=== PATIENT | female | born 1995 | race Caucasian/White ===

== ENCOUNTER 2019-08-20 08:03 | Inpatient (IN) | payer BC ==
[~2019-08-20] VITALS: Ht 185.4 cm; Wt 73.7 kg
[2019-08-20 08:47] LABS: MEAN CORPUSCULAR HEMOGLOBIN 29.9 pg (26.0-34.0); MEAN CORPUSCULAR HGB CONC 32.6 G/dL (31.0-37.0); MEAN CORPUSCULAR VOLUME 92 fL (80-100); PLATELET COUNT (AUTO) 123 K/uL (150-450); RED BLOOD CELL COUNT(AUTO) 4.36 MIL/uL (4.00-5.20); RED CELL DISTRIBUTION WIDTH 12.8 % (11.5-14.5)
[2019-08-20 08:53] LABS: ANION GAP 11 mmol/L (8-16); CARBON DIOXIDE 26 mmol/L (22-29); CHLORIDE 101 mmol/L (98-107); CREATININE 0.97 mg/dL (0.60-1.30); GLOMERULAR FILTR. RATE CALC > 60 mL/min (>60); GLUCOSE,RANDOM 100 mg/dL (70-110); POTASSIUM 3.4 mmol/L (3.5-5.1); SODIUM SERUM 138 mmol/L (136-145); UREA NITROGEN, BLOOD 13 mg/dL (7-18)
[2019-08-20 09:12] LABS: ALANINE AMINOTRANSFERASE 565 U/L (12-78); ALBUMIN 4.4 g/dL (3.4-5.0); ALKALINE PHOSPHATASE 105 U/L (46-116); ASPARTATE AMINOTRANSFERASE 312 U/L (15-37); BILIRUBIN,TOTAL 0.5 mg/dL (0.1-1.0); HCG,QUANTITATIVE < 1 mIU/mL (0-6); TOTAL PROTEIN, SERUM 8.4 g/dL (6.4-8.2)
[2019-08-20] MEDS ORDERED: LORazepam 2 MG TABLET PO PRN (09:30)
[2019-08-20] MEDS ORDERED: HALOPERIDOL 5 MG TABLET PO PRN (09:30)
[2019-08-20] MEDS ORDERED: ZOLPIDEM TARTRATE 10 MG TABLET PO PRN (09:30)
[2019-08-20] MEDS ORDERED: POTASSIUM CHLORIDE 10% 40 MEQ/30 ML LIQUID UDCUP PO ONE (09:45)
[2019-08-20 09:50] LABS: BAND NEUTROPHILS % (MANUAL) 0 % (0-5)
[2019-08-20 09:51] LABS: LYMPHOCYTES % (MANUAL) 74 % (22-44); MONOCYTES % (MANUAL) 3 % (2-9); SEGMENTED NEUTROPHILS % 23 % (40-70)
[2019-08-20 10:24] LABS: AMPHET/METH SCREEN,URINE NEGATIVE (NEGATIVE); APPEARANCE,URINE CLEAR (CLEAR); BARBITURATE SCREEN, URINE NEGATIVE (NEGATIVE); BENZODIAZEPINES SCREEN,URINE NEGATIVE (NEGATIVE); BILIRUBIN,URINE NEGATIVE (NEGATIVE); CANNABINOID SCREEN,URINE NEGATIVE (NEGATIVE); COCAINE SCREEN,URINE NEGATIVE (NEGATIVE); GLUCOSE, URINE (UA) NEGATIVE (NEGATIVE); KETONES,URINE NEGATIVE (NEGATIVE); LEUKOCYTE ESTERASE ,URINE NEGATIVE (NEGATIVE); METHADONE SCREEN, URINE NEGATIVE (NEGATIVE); NITRATE,URINE NEGATIVE (NEGATIVE); OCCULT BLOOD,URINE NEGATIVE (NEGATIVE); OPIATE SCREEN,URINE NEGATIVE (NEGATIVE); PH,URINE 5.5 (5.0-8.0); PROTEIN,URINE NEGATIVE (NEGATIVE); UROBILINOGEN,URINE 0.2 mg/dL (<=1.0)
[2019-08-20 10:26] LABS: PHENCYCLIDINE SCREEN,URINE NEGATIVE (NEGATIVE)
[2019-08-20 11:24] VITALS: BP 105/77
[2019-08-20] MEDS: FLUoxetine HCL 20 MG CAPSULE PO SCH ×2 (11:45→13:05)
[2019-08-20 17:30] VITALS: BP 145/72
[2019-08-20] MEDS ORDERED: DOCUSATE SODIUM 100 MG CAPSULE PO PRN (18:45)
[2019-08-20] MEDS ORDERED: ONDANSETRON HCL 4 MG TABLET PO PRN (18:45)
[2019-08-20] MEDS ORDERED: MAGNESIUM HYDROXIDE SUSPENSION 30 ML UDCUP PO PRN (18:45)
[2019-08-20] MEDS ORDERED: LOPERAMIDE HCL 2 MG CAPSULE PO PRN (18:45)
[2019-08-20] MEDS ORDERED: PETROLATUM,WHITE 28 GM JELLY TP PRN (18:45)
[2019-08-20] MEDS ORDERED: IBUPROFEN 400 MG TABLET PO PRN (18:45)
[2019-08-20] MEDS ORDERED: NICOTINE 14 MG/24 HOUR PATCH TD PRN (18:45)
[2019-08-20] MEDS ORDERED: GuaiFENesin/D-METHORPHAN [SUGAR-FREE] 200-20MG/10 ML SYRUP UDCUP PO PRN (18:45)
[2019-08-20] MEDS ORDERED: CloNIDine HCL 0.1 MG TABLET PO PRN (18:45)
[2019-08-20] MEDS ORDERED: ACETAMINOPHEN 325 MG TABLET PO PRN (18:45)
[2019-08-20] MEDS ORDERED: ALBUTEROL SULFATE HFA 90 MCG/PUFF 8 GM INHALER IH PRN (18:45)
[2019-08-20] MEDS ORDERED: MAG HYDROX/AL HYDROX/SIMETH ES 30 ML SUSPENSION UDCUP PO PRN (18:45)
[2019-08-21 08:04] LABS: CHOL/HDL RATIO 4.1 (3.9-5.7); POTASSIUM 4.4 mmol/L (3.5-5.1)
[2019-08-21 09:05] VITALS: BP 125/77
[2019-08-21] MEDS: FLUoxetine HCL 20 MG CAPSULE PO SCH (09:56)
[2019-08-21 16:01] VITALS: BP 117/79
[2019-08-21 17:51] VITALS: BP 124/77
[2019-08-21] MEDS: BENZOCAINE/MENTHOL LOZENGE PO PRN (17:51)
[2019-08-22 00:09] VITALS: BP 117/74
[2019-08-22 08:50] VITALS: BP 108/70
[2019-08-22] MEDS: FLUoxetine HCL 20 MG CAPSULE PO SCH (09:59)
[2019-08-22 16:00] VITALS: BP 113/70
[2019-08-22] MEDS: BENZOCAINE/MENTHOL LOZENGE PO PRN (17:10)
[2019-08-23 00:02] VITALS: BP 109/73
[2019-08-23] MEDS: BENZOCAINE/MENTHOL LOZENGE PO PRN ×2 (00:02→08:05)
[2019-08-23] MEDS: FLUoxetine HCL 20 MG CAPSULE PO SCH (08:05)
[2019-08-23 08:43] VITALS: BP 124/81
[2019-08-23] MEDS ORDERED: FLUO-191 PO (13:22)
== END 2019-08-23 15:58 | disposition home or self-care (01) | DRG 881 ==
LOC: EMS 08:04 → 3EI 09:21
PROVIDERS: ADMIT Psychiatry & Neurology Child & Adolescent Psychiatry; ATTEND Psychiatry & Neurology Child & Adolescent Psychiatry
DX: F32.9 Major depressive disorder, single episode, unspecified (principal); R45.851 Suicidal ideations; E87.6 Hypokalemia; F12.90 Cannabis use, unspecified, uncomplicated; F41.9 Anxiety disorder, unspecified; Z87.891 Personal history of nicotine dependence
CPT/HCPCS: 84132; G0480